=== PATIENT | female | born 1980 | race Caucasian/White ===

== ENCOUNTER 2022-10-05 15:39 | Emergency (ER) | payer SELFPAY ==
[2022-10-05 15:45] VITALS: BP 120/79; PULSE 93; RESP 18; TEMP 36.5; O2SAT 98; BMI 25.7
[2022-10-05] MEDS: SODIUM CHLORIDE 0.9% 1,000 ML 1000 ML IV (16:15)
[2022-10-05] MEDS: ONDANSETRON 4 MG/2 ML INJ IV (16:20)
[2022-10-05] MEDS: KETOROLAC 30 MG/ML VIAL IV (16:20)
[2022-10-05 16:35] LABS: Add Manual Diff / Slide Review NO; Basophils Absolute Auto 100 /uL (0-100); Basophils Percent Auto 0.6 % (0-2); Eosinophils Absolute Auto 0 /uL (0-450); Eosinophils Percent Auto 0.2 % (2-4); Hemoglobin 13.8 g/dL (12.0-16.0); Lymphocytes Absolute Auto 1600 /uL (1100-4500); Lymphocytes Percent Auto 14.2 % (25-40); Mean Corpuscular HGB Conc 33.6 % (30-36); Mean Corpuscular Hemoglobin 29.9 PG (26-34); Mean Corpuscular Volume 88.9 fL (80-100); Monocytes Absolute Auto 500 /uL (0-900); Monocytes Percent Auto 4.9 % (3-14); Neutrophils Absolute Auto 8800 /uL (1500-7000); Neutrophils Percent Auto 80.1 % (50-75); Platelet Count 310 X10^3/uL (150-400); Red Blood Cell Count 4.61 X10^6/uL (4.0-5.2); Red Cell Distribution Width 12.7 % (11.6-14.8)
[2022-10-05 16:37] LABS: Lactate (Lactic Acid) 1.3 mmol/L (0.7-2.1)
[2022-10-05 17:01] LABS: Alanine Aminotransferase 18 IU/L (<35); Albumin 4.9 g/dL (3.5-5.0); Albumin Globulin Ratio 1.6 (1.0-2.8); Alkaline Phosphatase 75 U/L (38-126); Aspartate Aminotransferase 22 IU/L (14-36); BUN Creatinine Ratio 12.3 (6-22); Bilirubin Total 0.7 mg/dL (0.2-1.3); Blood Urea Nitrogen 10 mg/dL (7-17); Calcium 9.8 mg/dL (8.4-10.2); Carbon Dioxide 26 mmol/L (22-32); Chloride 101 mmol/L (98-107); Estimated Glomerular Filt Rate > 60 mL/min (>60); Glucose 102 mg/dL (70-100); HEMOLYSIS < 15 (0-50); Lipase 34 U/L (23-300); Sodium 138 mmol/L (137-145); Total Protein 7.9 g/dL (6.3-8.2)
[2022-10-05 17:10] LABS: Influenza A - CEPHEID Flu A NEGATIVE (NEGATIVE); Influenza B - CEPHEID Flu B NEGATIVE (NEGATIVE); Respiratory Syncytial Virus Negative (Negative)
[2022-10-05 17:11] LABS: COVID-19 CEPHEID 4-PLEX PCR Negative (Negative)
--- NOTE | 2022-10-05 17:51 | ED.NAVMDI ---
HPI - Nausea/Vomiting/Diarrhea <ENRIQUE Mendoza - Last Filed: 10/05/22 18:07> General Chief complaint: Nausea/Vomiting/Diarrhea Stated complaint: ABD pain, Vomiting Time Seen by Provider: 10/05/22 17:14 Source: patient Mode of arrival: Ambulatory History of Present Illness HPI Narrative: This is a 41-year-old female presents to the emergency department complaining of vomiting last night after a holiday alliance party she went to for work. She states that she had 1 glass of wine, had dinner, and later had 2 beers, denies fever, chills, or any symptoms yesterday until she got home last night she states that she started vomiting and was up most of the night vomiting. She is had a bowel movement since it was normal, she denies dysuria, urinary frequency urgency, flank pain, or other symptom. She denies any upper respiratory symptoms including cough, sore throat, congestion or runny nose. Related Data Previous Rx's Medication Instructions Recorded ondansetron 4 mg disintegrating 4 mg PO Q8H PRN nausea and 10/05/22 tablet vomiting #14 tabs Allergies Allergy/AdvReac Type Severity Reaction Status Date / Time Sulfa (Sulfonamide Allergy Unknown Verified 10/05/22 16:19 Antibiotics) Review of Systems <ENRIQUE Mendoza - Last Filed: 10/05/22 18:07> Review of Systems Narrative: Review of systems is negative for acute abnormalities unless otherwise noted in HPI Patient History <ENRIQUE Mendoza - Last Filed: 10/05/22 18:07> Social History Smoking Status: Never smoker Smoking Status: Never smoker alcohol intake frequency: 0-2 drinks per day Substance Use Type: marijuana Exam <ENRIQUE Mendoza - Last Filed: 10/05/22 18:07> Narrative Exam Narrative: Reviewed vitals signs and nursing notes. General: cooperative, comfortable, in no acute distress, well groomed HEENT: symmetrical facial expressions, moist mucous membranes (after fluid bolus) Cardiovascular: regular rate and rhythm, no peripheral edema, warm extremities Respiratory: normal effort, able to speak in complete sentences, without wheezing, stridor, or abnormal breath sounds. No retractions or tachypnea. GI: abdomen soft, nontender to palpation, nondistended, without masses, rebound tenderness or exquisite tenderness with exam. No CVA tenderness MSK: moves all extremities, neurovascularly intact, no weakness, normal tone Skin: brisk capillary refill, without pallor or erythema Neuro: normal speech and cognition, A&O x3, ambulatory, clear speech Psych: mental status is grossly normal, congruent mood, normal affect, pleasant and cooperative Initial Vital Signs Initial Vital Signs: Vital Signs Temperature 97.7 F 10/05/22 15:45 Pulse Rate 93 H 10/05/22 15:45 Respiratory Rate 18 10/05/22 15:45 Blood Pressure 120/79 10/05/22 15:45 Pulse Oximetry 98 10/05/22 15:45 Oxygen Delivery Method 10/05/22 15:45 <Ann-Marie Christianson DO - Last Filed: 10/18/22 11:22> Initial Vital Signs Initial Vital Signs: Vital Signs Temperature 97.7 F 10/05/22 15:45 Pulse Rate 93 H 10/05/22 15:45 Respiratory Rate 18 10/05/22 15:45 Blood Pressure 120/79 10/05/22 15:45 Pulse Oximetry 98 10/05/22 15:45 Oxygen Delivery Method 10/05/22 15:45 Course <ENRIQUE Mendoza - Last Filed: 10/05/22 18:07> Orders Ordered: Discontinued Medications Cephalexin HCl (Cephalexin 250 Mg Capsule) 500 mg PO NOW ONE Stop: 10/05/22 18:04 Last Admin: 10/05/22 18:45 Dose: 500 mg Documented By: MARY Sodium Chloride (Normal Saline 0.9%) 1,000 mls @ 1,000 mls/hr IV BOLUS ONE Stop: 10/05/22 17:10 Last Infusion: 10/05/22 17:22 Dose: 0 mls/hr Documented By: Admin: 10/05/22 16:15 Dose: 1,000 mls/hr Documented By: TYRESE Ceftriaxone Sodium 1,000 mg/ (Sodium Chloride) 100 mls @ 200 mls/hr IV NOW ONE Stop: 10/05/22 17:45 Last Infusion: 10/05/22 18:47 Dose: 0 mls/hr Documented By: Admin: 10/05/22 18:18 Dose: 200 mls/hr Documented By: TYRESE Ketorolac Tromethamine (Ketorolac 30 Mg/Ml Vial) 30 mg IV NOW ONE Stop: 10/05/22 16:12 Last Admin: 10/05/22 16:20 Dose: 30 mg Documented By: YTRESE Ondansetron HCl (Ondansetron 4 Mg/2 Ml Inj) 4 mg IV NOW ONE Stop: 10/05/22 16:11 Last Admin: 10/05/22 16:20 Dose: 4 mg Documented By: TYRESE Vital Signs Vital signs: Vital Signs - 8 hr 10/05/22 15:45 Temperature 97.7 F Pulse Rate 93 H Respiratory Rate 18 Blood Pressure 120/79 Pulse Oximetry 98 Oxygen Delivery Method Room Air <Ann-Marie Christianson DO - Last Filed: 10/18/22 11:22> Orders Ordered: Discontinued Medications Cephalexin HCl (Cephalexin 250 Mg Capsule) 500 mg PO NOW ONE Stop: 10/05/22 18:04 Last Admin: 10/05/22 18:45 Dose: 500 mg Documented By: MARY Sodium Chloride (Normal Saline 0.9%) 1,000 mls @ 1,000 mls/hr IV BOLUS ONE Stop: 10/05/22 17:10 Last Infusion: 10/05/22 17:22 Dose: 0 mls/hr Documented By: Admin: 10/05/22 16:15 Dose: 1,000 mls/hr Documented By: TYRESE Ceftriaxone Sodium 1,000 mg/ (Sodium Chloride) 100 mls @ 200 mls/hr IV NOW ONE Stop: 10/05/22 17:45 Last Infusion: 10/05/22 18:47 Dose: 0 mls/hr Documented By: Admin: 10/05/22 18:18 Dose: 200 mls/hr Documented By: TYRESE Ketorolac Tromethamine (Ketorolac 30 Mg/Ml Vial) 30 mg IV NOW ONE Stop: 10/05/22 16:12 Last Admin: 10/05/22 16:20 Dose: 30 mg Documented By: TYRESE Ondansetron HCl (Ondansetron 4 Mg/2 Ml Inj) 4 mg IV NOW ONE Stop: 10/05/22 16:11 Last Admin: 10/05/22 16:20 Dose: 4 mg Documented By: KLS Vital Signs Vital signs: Vital Signs - 8 hr 10/05/22 15:45 Temperature 97.7 F Pulse Rate 93 H Respiratory Rate 18 Blood Pressure 120/79 Pulse Oximetry 98 Oxygen Delivery Method Room Air MDM - Nausea/Vomiting/Diarrhea <Nita Marina [facility] - Last Filed: 10/05/22 18:07> Lab Data Result diagrams: 10/05/22 16:27 10/05/22 16:07 Labs: Lab Results 10/05/22 10/05/22 10/05/22 Range/Units 16:07 16:27 16:27 WBC 11.0 (4.5-11.0) X10^3/uL RBC 4.61 (4.0-5.2) X10^6/uL Hgb 13.8 (12.0-16.0) g/dL Hct 41.0 (36-46) % MCV 88.9 (80-100) fL MCH 29.9 (26-34) PG MCHC 33.6 (30-36) % RDW 12.7 (11.6-14.8) % Plt Count 310 (150-400) X10^3/uL Neut % (Auto) 80.1 H (50-75) % Lymph % (Auto) 14.2 L (25-40) % [place] % (Auto) 4.9 (3-14) % Eos % (Auto) 0.2 L (2-4) % Baso % (Auto) 0.6 (0-2) % Neut # (Auto) 8800 H (3090-2529) /uL Lymph # (Auto) 1600 (8997-4712) /uL [place] # (Auto) 500 (0-900) /uL Eos # (Auto) 0 (0-450) /uL Baso # (Auto) 100 (0-100) /uL Sodium 138 (137-145) mmol/L Potassium 4.0 (3.4-5.1) mmol/L Chloride 101 (98-107) mmol/L Carbon Dioxide 26 (22-32) mmol/L BUN 10 (7-17) mg/dL Creatinine 0.81 (0.52-1.04) mg/dL Estimated GFR > 60 (>60) mL/min BUN/Creatinine Ratio 12.3 (6-22) Glucose 102 H (70-100) mg/dL Lactate 1.3 (0.7-2.1) mmol/L Calcium 9.8 (8.4-10.2) mg/dL Total Bilirubin 0.7 (0.2-1.3) mg/dL AST 22 (14-36) IU/L ALT 18 (<35) IU/L Alkaline Phosphatase 75 (38-126) U/L Total Protein 7.9 (6.3-8.2) g/dL Albumin 4.9 (3.5-5.0) g/dL Globulin 3.0 (1.7-4.1) g/dL Albumin/Globulin Ratio 1.6 (1.0-2.8) Lipase 34 (23-300) U/L Urine RBC (0-5/HPF) Urine WBC (0-5/HPF) Ur Squamous Epith Cells (0-5/HPF) Urine Bacteria (None) Urine Mucus (Negative) SARS-CoV-2 (PCR) (Negative) Influenza A (RT-PCR) (NEGATIVE) Influenza B (RT-PCR) (NEGATIVE) RSV (PCR) (Negative) 10/05/22 10/05/22 Range/Units 16:27 17:40 WBC (4.5-11.0) X10^3/uL RBC (4.0-5.2) X10^6/uL Hgb (12.0-16.0) g/dL Hct (36-46) % MCV (80-100) fL MCH (26-34) PG MCHC (30-36) % RDW (11.6-14.8) % Plt Count (150-400) X10^3/uL Neut % (Auto) (50-75) % Lymph % (Auto) (25-40) % [place] % (Auto) (3-14) % Eos % (Auto) (2-4) % Baso % (Auto) (0-2) % Neut # (Auto) (9450-7923) /uL Lymph # (Auto) (3803-3471) /uL [place] # (Auto) (0-900) /uL Eos # (Auto) (0-450) /uL Baso # (Auto) (0-100) /uL Sodium (137-145) mmol/L Potassium (3.4-5.1) mmol/L Chloride (98-107) mmol/L Carbon Dioxide (22-32) mmol/L BUN (7-17) mg/dL Creatinine (0.52-1.04) mg/dL Estimated GFR (>60) mL/min BUN/Creatinine Ratio (6-22) Glucose (70-100) mg/dL Lactate (0.7-2.1) mmol/L Calcium (8.4-10.2) mg/dL Total Bilirubin (0.2-1.3) mg/dL AST (14-36) IU/L ALT (<35) IU/L Alkaline Phosphatase (38-126) U/L Total Protein (6.3-8.2) g/dL Albumin (3.5-5.0) g/dL Globulin (1.7-4.1) g/dL Albumin/Globulin Ratio (1.0-2.8) Lipase (23-300) U/L Urine RBC 5-10/hpf H (0-5/HPF) Urine WBC 0-1/hpf (0-5/HPF) Ur Squamous Epith Cells 1-5 /hpf (0-5/HPF) Urine Bacteria Moderate (10-30) H (None) Urine Mucus 2+ H (Negative) SARS-CoV-2 (PCR) Negative (Negative) Influenza A (RT-PCR) Flu a negative (NEGATIVE) Influenza B (RT-PCR) Flu b negative (NEGATIVE) RSV (PCR) Negative (Negative) Point of Care Testing Test Results Negative Urine Dip Bedside Urine Glucose Negative Bedside Urine Bilirubin - Negative Bedside Urine Ketone + 15 Urine Specific [place] 1.020 Bedside Urine Occult Blood + Bedside Urine pH 6.0 Bedside Urine Protein +/- 15 Bedside Urine Urobilinogen - Negative Bedside Urine Nitrite - Negative Bedside Urine Leukocytes - Negative Esterase MDM Narrative Medical decision making narrative: This is a 41-year-old female presents to the emergency department with concerned about pain that started after she came home from a holiday alliance party last night and has since improved. She has 3 alcoholic beverages with her food and vomited sling most of the night, did not have diarrhea, her respiratory panel was negative for COVID, influenza a and B and RSV. Her lab work overall is reassuring, mild hemoconcentration, no leukocytosis, there is a left shift, no electrolyte abnormalities or elevation to her liver enzymes, creatinine is 0.81, no lactic acidosis. Patient has a history of a total hysterectomy, denies any abnormal vaginal discharge, her urine dip was positive for blood, microscopy shows moderate bacteria, rbc's 5-10, unlikely contamination. Patient was given ceftriaxone 1 g and 1 L of IV fluid, she felt much better after antiemetics. She was given strict return precautions, encouraged to stay hydrated, empty her bladder frequently, and to follow up with her primary care provider as needed. No peritoneal signs on abdominal exam. Patient remains p.o. tolerant. Serial abdominal exam without increase in abdominal pain. Given history and exam, low suspicion for acute abdominal process, such as acute cholecystitis, pancreatitis, perforated viscus, atypical appendicitis, colitis, diverticulitis or torsion. Extensive conversation about ER return precautions and need for close follow-up. Patient is appropriate and amenable to discharge home. Vital signs are stable on repeat examination is unremarkable. Patient has been informed of results. Patient has been given strict return to ER precautions for any new or worsening symptoms. Patient understands to follow up closely with outpatient providers as instructed. Patient understands plan and agrees to discharge home. All questions and concerns answered at this time. <Ann-Marie Christianson, DO - Last Filed: 10/18/22 11:22> Lab Data Labs: Lab Results 10/05/22 10/05/22 10/05/22 Range/Units 16:07 16:27 16:27 WBC 11.0 (4.5-11.0) X10^3/uL RBC 4.61 (4.0-5.2) X10^6/uL Hgb 13.8 (12.0-16.0) g/dL Hct 41.0 (36-46) % MCV 88.9 (80-100) fL MCH 29.9 (26-34) PG MCHC 33.6 (30-36) % RDW 12.7 (11.6-14.8) % Plt Count 310 (150-400) X10^3/uL Neut % (Auto) 80.1 H (50-75) % Lymph % (Auto) 14.2 L (25-40) % [place] % (Auto) 4.9 (3-14) % Eos % (Auto) 0.2 L (2-4) % Baso % (Auto) 0.6 (0-2) % Neut # (Auto) 8800 H (9811-3557) /uL Lymph # (Auto) 1600 (2193-1141) /uL [place] # (Auto) 500 (0-900) /uL Eos # (Auto) 0 (0-450) /uL Baso # (Auto) 100 (0-100) /uL Sodium 138 (137-145) mmol/L Potassium 4.0 (3.4-5.1) mmol/L Chloride 101 (98-107) mmol/L Carbon Dioxide 26 (22-32) mmol/L BUN 10 (7-17) mg/dL Creatinine 0.81 (0.52-1.04) mg/dL Estimated GFR > 60 (>60) mL/min BUN/Creatinine Ratio 12.3 (6-22) Glucose 102 H (70-100) mg/dL Lactate 1.3 (0.7-2.1) mmol/L Calcium 9.8 (8.4-10.2) mg/dL Total Bilirubin 0.7 (0.2-1.3) mg/dL AST 22 (14-36) IU/L ALT 18 (<35) IU/L Alkaline Phosphatase 75 (38-126) U/L Total Protein 7.9 (6.3-8.2) g/dL Albumin 4.9 (3.5-5.0) g/dL Globulin 3.0 (1.7-4.1) g/dL Albumin/Globulin Ratio 1.6 (1.0-2.8) Lipase 34 (23-300) U/L Urine RBC (0-5/HPF) Urine WBC (0-5/HPF) Ur Squamous Epith Cells (0-5/HPF) Urine Bacteria (None) Urine Mucus (Negative) SARS-CoV-2 (PCR) (Negative) Influenza A (RT-PCR) (NEGATIVE) Influenza B (RT-PCR) (NEGATIVE) RSV (PCR) (Negative) 10/05/22 10/05/22 Range/Units 16:27 17:40 WBC (4.5-11.0) X10^3/uL RBC (4.0-5.2) X10^6/uL Hgb (12.0-16.0) g/dL Hct (36-46) % MCV (80-100) fL MCH (26-34) PG MCHC (30-36) % RDW (11.6-14.8) % Plt Count (150-400) X10^3/uL Neut % (Auto) (50-75) % Lymph % (Auto) (25-40) % [place] % (Auto) (3-14) % Eos % (Auto) (2-4) % Baso % (Auto) (0-2) % Neut # (Auto) (7073-6701) /uL Lymph # (Auto) (8417-2995) /uL [place] # (Auto) (0-900) /uL Eos # (Auto) (0-450) /uL Baso # (Auto) (0-100) /uL Sodium (137-145) mmol/L Potassium (3.4-5.1) mmol/L Chloride (98-107) mmol/L Carbon Dioxide (22-32) mmol/L BUN (7-17) mg/dL Creatinine (0.52-1.04) mg/dL Estimated GFR (>60) mL/min BUN/Creatinine Ratio (6-22) Glucose (70-100) mg/dL Lactate (0.7-2.1) mmol/L Calcium (8.4-10.2) mg/dL Total Bilirubin (0.2-1.3) mg/dL AST (14-36) IU/L ALT (<35) IU/L Alkaline Phosphatase (38-126) U/L Total Protein (6.3-8.2) g/dL Albumin (3.5-5.0) g/dL Globulin (1.7-4.1) g/dL Albumin/Globulin Ratio (1.0-2.8) Lipase (23-300) U/L Urine RBC 5-10/hpf H (0-5/HPF) Urine WBC 0-1/hpf (0-5/HPF) Ur Squamous Epith Cells 1-5 /hpf (0-5/HPF) Urine Bacteria Moderate (10-30) H (None) Urine Mucus 2+ H (Negative) SARS-CoV-2 (PCR) Negative (Negative) Influenza A (RT-PCR) Flu a negative (NEGATIVE) Influenza B (RT-PCR) Flu b negative (NEGATIVE) RSV (PCR) Negative (Negative) Point of Care Testing Test Results Negative Urine Dip Bedside Urine Glucose Negative Bedside Urine Bilirubin - Negative Bedside Urine Ketone + 15 Urine Specific [place] 1.020 Bedside Urine Occult Blood + Bedside Urine pH 6.0 Bedside Urine Protein +/- 15 Bedside Urine Urobilinogen - Negative Bedside Urine Nitrite - Negative Bedside Urine Leukocytes - Negative Esterase Discharge Plan Departure Patient Disposition: Home Clinical Impression: Acute cystitis with hematuria Vomiting Qualifiers: Vomiting type: unspecified Nausea presence: with nausea Qualified Code(s): R11.2 - Nausea with vomiting, unspecified Instructions: Acute Cystitis, DI for Vomiting -- Adult Activity Restrictions/Additional Instructions: *You have been diagnosed with vomiting last night which could be due to food poisoning, a viral illness like gastroenteritis or norovirus, but your urine showed blood in it on the quick dip, under the microscope it showed a lot of bacteria. This is likely why you did not feel well and were vomiting last night. I have sent antibiotics to your pharmacy, please pick them up, start taking them tomorrow, use Zofran as needed for nausea and vomiting. I hope that you start feeling better soon. *What to do: *Please continue to take your regular medications as directed. [ x] New medication prescriptions sent to your pharmacy: [Jenny mace] [ ] New medication written as a paper prescription [ ] No new medications given *Please follow up with your primary care provider in 2-3 days, call for an appointment. Let them know you were seen in the Emergency Department and that we asked that you be seen for follow-up. We will electronically transmit a record of today's note if your PCP is in our system *If you do not have a primary care provider please contact [phone] to establish care with one of the [facility] primary care providers. *Return to Emergency Department if you should have any new, worsening, or concerning symptoms, such as [fever greater than 101F, chills, worsening pain, persistent vomiting or other bothersome symptoms]. Prescriptions: New ondansetron 4 mg tablet,disintegrating 4 mg PO Q8H PRN (Reason: nausea and vomiting) Qty: 14 0RF Visit Report Forms: Patient Portal/API <Ann-Marie Christianson DO - Last Filed: 10/18/22 11:22> Cosign ED Attending Isidroature Attestation: I was immediately available in the department for consultation. Documentation has been reviewed.
[2022-10-05 18:01] LABS: Bacteria Urine Moderate (10-30); RBC Urine 5-10/HPF (0-5/HPF); Squamous Epithelial Cell Urine 1-5 /HPF (0-5/HPF); WBC Urine 0-1/HPF (0-5/HPF)
[2022-10-05 18:02] LABS: Mucus Urine 2+ (Negative)
[2022-10-05] MEDS: cefTRIAXone 1,000 MG in SODIUM CHLORIDE 0.9% 100 ML 200 MG IV (18:18)
[2022-10-05 18:44] VITALS: BP 106/75; PULSE 65; RESP 16; O2SAT 99
[2022-10-05] MEDS: cephALEXin 250 MG CAPSULE 500 MG PO (18:45)
== END 2022-10-05 19:11 | disposition home or self-care (01) ==
PROVIDERS: Emergency Medicine; Emergency Provider Nurse Practitioner Critical Care Medicine
DX: N30.01 Acute cystitis with hematuria (principal); R11.2 Nausea with vomiting, unspecified; Z20.822 Contact with and (suspected) exposure to COVID-19
CPT/HCPCS: 0241U; 36415; 80053; 81003; 81015; 81025; 83605; 83690; 85025; 87086; 96361; 96365; 96375; 99284; J0696; J1885; J2405